=== PATIENT | male | born 1990 | race Two or more races ===

== ENCOUNTER 2021-11-25 17:37 | Emergency (ER) | payer OTHER ==
[~2021-11-25] VITALS: Ht 182.9 cm; Wt 68.0 kg
--- NOTE | 2021-11-25 20:40 | NUR ---
pt in room 5a for c/o low back pain
[2021-11-25] MEDS ORDERED: ONDANSETRON 4 MG/2 ML VIAL IV ONE (21:00)
[2021-11-25] MEDS ORDERED: HYDROMORPHONE 1 MG/1 ML DISP.SYRIN IV ONE ×2 (21:00→22:15)
[2021-11-25] MEDS ORDERED: ONDANSETRON 4 MG/2 ML VIAL ONE (21:04)
[2021-11-25] MEDS ORDERED: HYDROMORPHONE 1 MG/1 ML DISP.SYRIN ONE ×2 (21:05→22:10)
[2021-11-25] MEDS ORDERED: ONDA4TAB5 PO (22:19)
[2021-11-25] MEDS ORDERED: HYDR-3980 PO (22:19)
--- NOTE | 2021-11-26 00:46 | NUR ---
call to [facility], unknown eta it may be a few hours. pt will wait in the waiting room. voucher will be with the er airplane rental clerk.
--- NOTE | 2021-11-26 00:51 | NUR ---
Patient discharged to home in stable condition. Written and verbal after care instructions given. Patient verbalizes understanding of instructions. Stressed follow up or return to ER for worsening s/s. pt will wait in the waiting room for taxi.
[2021-11-26 00:53] VITALS: BP 130/80
== END 2021-11-26 00:54 | disposition home or self-care (01) ==
LOC: ER 18:03
DX: M54.9 Dorsalgia, unspecified (principal); F17.210 Nicotine dependence, cigarettes, uncomplicated; R11.0 Nausea; F41.9 Anxiety disorder, unspecified; J45.909 Unspecified asthma, uncomplicated
CPT/HCPCS: 99284; 96374; 96375; 99406; 72100; 96376; J2405; J1170 ×2; A4663